=== PATIENT | female | born 1935 | race Caucasian/White ===

== ENCOUNTER 2020-10-19 12:03 | Observation (INO) | payer MEDICARE ==
[~2020-10-19] VITALS: Ht 160 cm; Wt 76.4 kg
[2020-10-19 12:39] LABS: BASOPHILS ABSOLUTE AUTO 0.03 K/mm3 (0.00-0.23); BASOPHILS PERCENT AUTO 1 % (0-2); EOSINOPHILS ABSOLUTE AUTO 0.13 K/mm3 (0.00-0.68); EOSINOPHILS PERCENT AUTO 2 % (0-6); Hematocrit 34.3 % (33.0-51.0); Hemoglobin 11.1 g/dL (11.5-16.0); IMMATURE GRAN ABSOLUTE AUTO 0.01 K/mm3 (0.00-0.10); IMMATURE GRAN PERCENT AUTO 0 % (0-1); LYMPHOCYTES ABSOLUTE AUTO 0.96 K/mm3 (0.84-5.20); LYMPHOCYTES PERCENT AUTO 15 % (21-46); MONOCYTES ABSOLUTE AUTO 0.78 K/mm3 (0.16-1.47); MONOCYTES PERCENT AUTO 12 % (4-13); Mean Corpuscular HGB 32.3 pg (26.0-34.0); Mean Corpuscular HGB Conc 32.4 g/dL (31.5-36.5); Mean Corpuscular Volume 100 fL (80-100); Mean Platelet Volume 10.1 fL (9.1-12.4); NEUTROPHILS ABSOLUTE AUTO 4.36 K/mm3 (1.96-9.15); NEUTROPHILS PERCENT AUTO 70 % (41-73); Platelet Count 228 K/mm3 (150-400); RDW Coefficient Variation 14.7 % (11.7-14.2); Red Blood Cell Count 3.44 M/mm3 (3.80-5.20); White Blood Cell Count 6.27 K/mm3 (4.00-11.30)
[2020-10-19 13:12] LABS: Albumin, Blood 3.3 g/dL (3.4-5.0); Albumin/Globulin Ratio 0.8 (0.8-1.8); Bilirubin, Total 0.4 mg/dL (0.1-1.0); Calcium, Blood 8.7 mg/dL (8.5-10.1); Creatinine, Blood 2.2 mg/dL (0.40-1.00); Globulin, Blood 4.2 g/dL (2.2-4.0); Potassium, Blood 3.5 mmol/L (3.5-5.5); Total Protein, Blood 7.5 g/dL (6.4-8.2)
[2020-10-19 13:17] LABS: Troponin I 0.615 ng/mL (0.000-0.040)
[2020-10-19] MEDS ORDERED: METO100ER PO (13:27)
[2020-10-19] MEDS ORDERED: COLESTIPOL HCL1 G1 PO (13:31)
[2020-10-19] MEDS ORDERED: GLIP2.5ER PO (13:31)
[2020-10-19] MEDS ORDERED: KLOR-CON 1010 MEQ PO (13:31)
[2020-10-19] MEDS ORDERED: OMEP20ER PO (13:31)
[2020-10-19] MEDS ORDERED: ATOR40TA PO (13:32)
[2020-10-19] MEDS ORDERED: ALLOPURINOL100 M1 PO (13:32)
[2020-10-19] MEDS ORDERED: LOSARTAN POTASS25 M2 PO (13:32)
[2020-10-19] MEDS ORDERED: ISOSORBIDE MONO30 MG PO (13:32)
[2020-10-19] MEDS ORDERED: TRAZ50 PO (13:33)
[2020-10-19 14:18] LABS: International Normalized Ratio 0.98; Prothrombin Time Results 10.5 Sec (9.7-11.5)
--- NOTE | 2020-10-19 15:45 | NUR ---
DR. FORDE AT BEDSIDE. DISCUSSED POC. PLAN IS FOR FIRST PART OF STRESS TEST THIS AFTERNOON THEN SECOND HALF TOMORROW. PATIENT RECEIVED NITRO PASTE IN ED. HE ASKED ME TO REMOVE IT AND SAID THAT THE SECOND HALF OF THE STRESS TEST COULD BE DONE TOMORROW AFTERNOON, NUC MED NIKKI ACOSTA IN ROOM AND WAS NOTIFIED. KARLA SAID NO CAFFEINE AFTER 2000 TONIGHT AND NPO AFTER MIDNIGHT. NITRO PASTE REMOVED AT APPROX 1540.
--- NOTE | 2020-10-19 16:41 | NUR ---
ASSISTED PATIENT UP TO BATHROOM AT APPROX 1625. UPON RETURNING TO BED, PATIENT REPORTED CHEST AND JAW PAIN RATED 8/10. BP 207/118, HEART RATE 101. TELEMONITOR SAID THAT THERE WERE NO CHANGES. PATIENT STATED CHEST AND JAW PAIN STARTED TO DECREASE. AT 1635, PATIENT STATED HER PAIN HAD GONE AWAY, WAS 0/10 AT REST. BP 168/85, HEART RATE 92. PRIMARY RN PETR IN ROOM. CALLED DR. FORDE TO NOTIFY HIM. NOTIFIED HIM OF PATIENT'S PAIN AND VITALS. DR. FORDE ORDERED TO GIVE THE MEDICATIONS THAT HE HAD JUST ORDERED (PETR GAVE THESE MEDS). STATED HE BELIEVED PATIENT'S PAIN WAS DUE TO HER UNCONTROLLED BLOOD PRESSURE. ORDERED BEDREST WITH BEDSIDE COMMODE.
--- NOTE | 2020-10-19 16:57 | NUR ---
to nuclear med per cart
--- NOTE | 2020-10-19 17:46 | NUR ---
SUMMARY PT EATING DINNER AT THIS TIME, DENIES ANY PAIN, SOB OR DISCOMFORT. STOOL SPECIMENT SENT, ONE EPISODE DIARRHEA STOOL SINCE ADMISSION. PTS DAUGHTER AT BEDSIDE. MONITOR SR WITH BBB
--- NOTE | 2020-10-19 18:25 | NUR ---
DR. LEE AT BEDSIDE. DISCUSSED POC. REVIEWED PATIENT'S BP AND HEART RATE, ALSO REVIEWED MEDICATIONS. ORDERS RECEIVED FOR CLONIDINE 0.1 MG PO BID AND FOR RENAL DUPLEX. ULTRASOUND IN ROOM TO PERFORM RENAL ULTRASOUND. HE TOLD PATIENT HER KIDNEY FUNCTION IS "UP" FROM HER LAST APPOINTMENT WITH HIM. STATED HE IS OK WITH HER RECEIVING AN ANGIOGRAM, "WE CAN FIX THE KIDNEYS IF WE NEED TO AFTERWARDS". PLAN IS FOR NPO AT MIDNIGHT FOR RENAL DUPLEX.
[2020-10-19 18:41] LABS: Adenovirus F 40/41 Not Detected (NOT DETECT); Astrovirus Not Detected (NOT DETECT); Campylobacter Sp Not Detected (NOT DETECT); Cryptosporidium Not Detected (NOT DETECT); Cyclospora Cayetanensis Not Detected (NOT DETECT); E. Coli O157 Not Detected (NOT DETECT); Entamoeba Histolytica Not Detected (NOT DETECT); Enteroaggregative E. coli-EAEC Not Detected (NOT DETECT); Enteropathogenic E. coli-EPEC Not Detected (NOT DETECT); Enterotoxigenic E. coli-ETEC Not Detected (NOT DETECT); Giardia Lamblia Not Detected (NOT DETECT); Norovirus GI/GII Not Detected (NOT DETECT); Plesiomonas Shigelloides Not Detected (NOT DETECT); Rotavirus A Not Detected (NOT DETECT); Salmonella Sp Not Detected (NOT DETECT); Sapovirus Not Detected (NOT DETECT); Shiga Toxin-prod E. coli-STEC Not Detected (NOT DETECT); Shigella/Enteroin E. coli-EIEC Not Detected (NOT DETECT); Vibrio Cholerae Not Detected (NOT DETECT); Vibrio Sp Not Detected (NOT DETECT); Yersinia Enterocolitica Not Detected (NOT DETECT)
--- NOTE | 2020-10-19 20:05 | NUR ---
CARE ASSUMPTION PT A&O X4. BP ELEVATED, OTHERWISE VSS. MONITOR SHOWS SR, HR 80's-90's. SPO2 > 92% ON RA. PT DENIES CP AT THIS TIME, REPORTS PREVIOUS CP W/ ACTIVITY DURING DAY SHIFT THAT THEN RESOLVED W/ REST. PT INSTRUCTED TO NOTIFY STAFF IF CP OCCURS AGAIN. HEPARIN GTT INFUSING PER EMAR. NS GTT INFUSING PER EMAR. WILL CONTINUE TO MONITOR & PROVIDE CARE.
[2020-10-20 04:11] LABS: Hematocrit 31.1 % (33.0-51.0); Hemoglobin 10.3 g/dL (11.5-16.0)
[2020-10-20 04:34] LABS: Albumin, Blood 2.8 g/dL (3.4-5.0); Anion Gap 6 mmol/L (6-16); Blood Urea Nitrogen 49 mg/dL (8-24); Bun/Creatinine Ratio 24.5 (12.0-20.0); CO2, Blood 23 mmol/L (21-32); Calcium, Blood 8.6 mg/dL (8.5-10.1); Chloride, Blood 113 mmol/L (98-108); Glomerular Filtration Rate 25 (60-); Glucose, Blood 101 mg/dL (70-99); Magnesium, Blood 1.9 mg/dL (1.6-2.4); Phosphorus, Blood 3.3 mg/dL (2.5-4.9); Potassium, Blood 3.6 mmol/L (3.5-5.5); Sodium, Blood 142 mmol/L (136-145); Troponin I 0.468 ng/mL (0.000-0.040)
--- NOTE | 2020-10-20 06:01 | NUR ---
SHIFT SUMMARY PT CONTINUES TO BE A&O X4. VSS. BP IMPROVED THIS SHIFT W/ SCHEDULED MEDICATION PER EMAR, SEE VS & EMAR. MONITOR SHOWS SR W/ BBB, HR 60's-90's. SPO2 > 92% ON RA. PT ON BEDREST W/ [place]BA TO [facility] [place] REPORT OF CP W/ EXERTION DURING PREVIOUS DAY SHIFT. PT DENIES CP THIS SHIFT. HEPARIN GTT INFUSING PER EMAR. NS GTT INFUSING PER EMAR. MD LEE IN TO SEE PT THIS AM W/ ORDERS TO REDUCE NS GTT FROM 75 MLS/HR TO 50 MLS/HR. PT NPO FOR STRESS TEST TODAY.
--- NOTE | 2020-10-20 09:49 | NUR ---
Echocardiogram completed.
--- NOTE | 2020-10-20 17:40 | NUR ---
PATIENT COMPLETED SECOND DAY OF STRESS TEST. VSS, PATIENT ON ROOM AIR THIS SHIFT. PATIENT ENDORSED CHEST PRESSURE/PAIN AT A 6/10 DURING THE MORNING WELL SEVERE L. JAW PAIN. PAIN RESOLVED WITH FENTANYL ADMINISTRATION. PATIENT AGAIN ENDORSED CHEST PAIN/PRESSURE AND JAW PAIN 4/10 AFTER STRESS PORTION OF TEST, BUT RESOLVED ON ITS OWN. PATIENT ABLE TO USE BEDSIDE COMMODE WITH SBA, TOLERATED WELL. CHEST PAIN UNRELATED TO ACTIVITY, OCCURED AT REST THIS SHIFT.
[2020-10-20 22:10] LABS: Bilirubin, Urine Neg (Neg); Blood, Urine 1+ (Neg); Glucose Qualitative, Urine Neg (Neg); Ketones, Urine Neg (Neg); Leukocyte Esterase, Urine 3+ (Neg); Nitrite, Urine Neg (Neg); Protein, Urine 2+ (Neg); Specific Gravity, Urine 1.015 (1.003-1.022); Urobilinogen, Urine NORM (Normal)
[2020-10-20 22:17] LABS: Appearance, Urine Clear (Clear); Color, Urine Yellow (P-Yellow)
[2020-10-20 22:22] LABS: White Blood Cells, Urine 50-100 /hpf (0-5)
[2020-10-20 22:23] LABS: Bacteria Few /hpf; Red Blood Cells, Urine 0-2 /hpf (0-2); Squamous Epithelial Cells Few /hpf (Few)
[2020-10-21 04:12] LABS: Hemoglobin 9.3 g/dL (11.5-16.0)
[2020-10-21 04:35] LABS: Albumin, Blood 2.6 g/dL (3.4-5.0); Anion Gap 8 mmol/L (6-16); Blood Urea Nitrogen 33 mg/dL (8-24); Bun/Creatinine Ratio 20.6 (12.0-20.0); CO2, Blood 21 mmol/L (21-32); Calcium, Blood 8.5 mg/dL (8.5-10.1); Chloride, Blood 113 mmol/L (98-108); Glomerular Filtration Rate 33 (60-); Glucose, Blood 94 mg/dL (70-99); Phosphorus, Blood 2.7 mg/dL (2.5-4.9); Potassium, Blood 3.6 mmol/L (3.5-5.5); Sodium, Blood 142 mmol/L (136-145)
--- NOTE | 2020-10-21 06:19 | NUR ---
SHIFT SUMMARY PT A&O X4. VSS. MONITOR SHOWS SB-SR W/ BBB, HR 50's-90's. SPO2 > 92% ON RA. PT W/ NO REPORT OF CP THIS SHIFT, TOLERATING AMBULATION TO BATHROOM T/O SHIFT. PT REPORTS LAST EPISODE OF DIARRHEA YESTERDAY (10/20) AM. MD LEE IN TO SEE PT THIS AM W/ ORDER TO DC NS GTT & HAVE PT FOLLOW UP W/ HIM ON THURSDAY. WILL CONTINUE TO MONITOR & PROVIDE CARE UNTIL REPORT OFF TO DAY SHIFT RN.
[2020-10-21] MEDS ORDERED: ACET325 PO (11:26)
[2020-10-21] MEDS ORDERED: LACT PO (11:27)
[2020-10-21] MEDS ORDERED: CLON.1 PO (11:27)
[2020-10-21] MEDS ORDERED: ASPI81CH PO (11:28)
--- NOTE | 2020-10-21 12:34 | NUR ---
DISCHARGE INSTRUCTIONS GONE OVER WITH PT AND FAMILY. INSTRUCTED PT THAT MEDICATIONS WERE CALLED INTO [facility], PER PT'S REQUEST. BELONGINGS GATHERED AND GIVEN TO PT. PT ESCORTED OUT TO FAMILY VEHICLE BY WHEELCHAIR ESCORTED BY RN.
[2020-10-21] MEDS ORDERED: AMLO5 PO (15:30)
== END 2020-10-21 12:28 | disposition home or self-care (01) ==
LOC: ER 12:03 → PCU 15:03
PROVIDERS: Emergency Medicine; Internal Medicine; Internal Medicine Nephrology; Pharmacist; ADMIT Internal Medicine
DX: I21.4 Non-ST elevation (NSTEMI) myocardial infarction (principal); N17.9 Acute kidney failure, unspecified; I12.9 Hypertensive chronic kidney disease with stage 1 through stage 4 chronic kidney disease, or unspecified chronic kidney disease; E11.22 Type 2 diabetes mellitus with diabetic chronic kidney disease; N18.4 Chronic kidney disease, stage 4 (severe); D63.1 Anemia in chronic kidney disease; R19.7 Diarrhea, unspecified; I24.9 Acute ischemic heart disease, unspecified; E78.5 Hyperlipidemia, unspecified; I44.7 Left bundle-branch block, unspecified; I44.0 Atrioventricular block, first degree; I25.10 Atherosclerotic heart disease of native coronary artery without angina pectoris; E86.9 Volume depletion, unspecified; E88.09 Other disorders of plasma-protein metabolism, not elsewhere classified; Z20.828 Contact with and (suspected) exposure to other viral communicable diseases; Z79.84 Long term (current) use of oral hypoglycemic drugs; Z79.899 Other long term (current) drug therapy; Z95.5 Presence of coronary angioplasty implant and graft; Z87.891 Personal history of nicotine dependence; Z23 Encounter for immunization
CPT/HCPCS: 0097U; 36415; 71045; 76770; 78452; 80053; 80069; 81001; 83735; 84484; 85014; 85018; 85025; 85610; 85730; 87086; 93005; 93010; 93017; 93306; 93975; 96365; 96374; 96375; 96376; 99285-25; A9270; A9270-GY; A9500; G0378; J0706; J1644; J2785; J3010; J7030

== ENCOUNTER → 2025-08-17 | Outpatient (CLI) | payer MEDICARE ==
[~2025-08-17] MED LIST: ACET325 PO; ALLOPURINOL100 M1 PO; AMLO5 PO; ASPI81CH PO; ATOR40TA PO; CLON.1 PO; COLESTIPOL HCL1 G1 PO; GLIP2.5ER PO; ISOSORBIDE MONO30 MG PO; KLOR-CON 1010 MEQ PO; LACT PO; LOSARTAN POTASS25 M2 PO; METO100ER PO; OMEP20ER PO; TRAZ50 PO
[2025-08-18 10:38] LABS: Thyroid Stimulating Hormone 2.53 uIU/mL (0.360-4.800)
== END ==
LOC: LAB 15:22 → LAB SHORT 15:22
PROVIDERS: Internal Medicine Hematology & Oncology
DX: E61.1 Iron deficiency (principal); Z79.899 Other long term (current) drug therapy
CPT/HCPCS: 82607; 84443